=== PATIENT | female | born 1975 | race African-American/Black ===

== ENCOUNTER 2016-07-10 04:58 | Day surgery (SDC) | payer BC, OTHER ==
[2016-07-05 12:12] VITALS: BMI 25.8
[2016-07-10] MEDS ORDERED: PROPOFOL 20 ML ONE (09:07)
[2016-07-10] MEDS ORDERED: ROCURONIUM BROMIDE 50 MG/5 ML VIAL ONE (09:07)
--- NOTE | 2016-07-10 09:09 | HP ---
Past Medical History - Primary Care Physician PCP:: Glen Schofield - Admission Chief Complaint: 40 yo P4 admitted for laparoscopic BTL History of Present Illness: Multiparity. Sterilization History Source: Patient, Medical Record Limitations to Obtaining History: No Limitations - Past Medical History BOW STAPLER: No: Alzheimer's, CVA, Dementia, Migraine, Multiple Sclerosis, Peripheral Neuropathy, Parkinson's, Seizure, Syncope, TIA, Vertigo, Other Cardiovascular: No: AFIB, Aneurysm, Aortic Insufficiency, Aortic Stenosis, CAD, CHF, Deep Vein Thrombosis, HTN, Hyperlipdemia, [place], Mitral Insufficiency, Mitral Stenosis, Murmur, Pulmonary Hypertension, Other Pulmonary: No: Asthma, Bronchitis, Cancer, COPD, O2 Dependent, Pneumonia, Previously Intubated, Pulmonary Embolus, Pulmonary Fibrosis, Sleep Apnea, Other Gastrointestinal: Yes: Other (Hep B chronic carrier) Hepatobiliary: Yes: Hepatitis B Renal/: No: Renal Failure, Renal Inusuff, BPH, Cancer, Hematuria, Hemodialysis , Neurogenic Bladder, Renal Calculi, UTI, Other Reproductive: No: Ectopic , Endometriosis, Fibroids, PID, Polycystic Ovary Syndrome, Postmenopausal, Other ...Para: 4 Heme/Onc: No: Anemia, B12 Deficiency, Bleeding Disorder, Cancer, Current Chemotherapy, Current Radiation Therapy, Hemochromatosis, Hypercoaguable State, Myeloproliferative Synd, Sickle Cell Disease, Sickle Cell Trait, Thrombocytopenia, Other Infectious Disease: No: AIDS, C-Diff, Herpes Zoster, HIV, MRSA, STD's, Tuberculosis, VREF, Other Psych: No: Addictions, Anxiety, Bipolar, Depression, Panic, Psychosis, Schizophrenia, Other Musculoskeletal: No: Bursitis, Chronic low back pain, Hemiparesis, Hemiplegia, Osteoarthritis, Paraplegia, Other Rheumatology: No: Fibromyalgia, Gout, Lupus, Rheumatoid Arthritis, Sarcoidosis, Vasculitis, Other ENT: No: Allergic Rhinitis, Sinusitis, Other Endocrine: No: [place]'s Disease, [place]'s Disease, Diabetes Insipidus, Diabetes Mellitus, Hyperparathyroidism, Hyperthyroidism, Hypothyroidism, Osteopenia, SIADH, Other Dermatology: No: Basal Cell, Cellulitis, Eczema, Melanoma, Psoriasis, Squamous Cell, Other - Past Surgical History Hx Myomectomy: No Hx Transabdominal Cerclage: No Additional Surgical History: Laparoscopic removal of IUD - Smoking History Smoking history: Never smoked Have you smoked in the past 12 months: No - Alcohol/Substance Use Hx Alcohol Use: No History of Substance Use: reports: None - Social History Usual Living Arrangement: Yes: With Spouse, With Child ADL: Independent History of Recent Travel: No Home Medications - Allergies Allergies/Adverse Reactions: Allergies Allergy/AdvReac Type Severity Reaction Status Date / Time No Known Allergies Allergy Verified 04/11/16 18:51 - Home Medications Home Medications: Ambulatory Orders Pnv95/Ferrous Fumarate/FA [ Caplet] 1 tab PO DAILY 03/14/16 Review of Systems - Review of Systems Constitutional: reports: No Symptoms Eyes: reports: No Symptoms HENT: reports: No Symptoms Neck: reports: No Symptoms Cardiovascular: reports: No Symptoms Respiratory: reports: No Symptoms Gastrointestinal: reports: No Symptoms Genitourinary: reports: No Symptoms Breasts: reports: No Symptoms Reported Musculoskeletal: reports: No Symptoms Integumentary: reports: No Symptoms Neurological: reports: No Symptoms Endocrine: reports: No Symptoms Hematology/Lymphatic: reports: No Symptoms Psychiatric: reports: No Symptoms Pain Intensity: 0 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 Vital Signs: Vital Signs Temperature 97.9 F 07/10/16 07:59 Pulse Rate 69 07/10/16 07:59 Respiratory Rate 18 07/10/16 07:59 Blood Pressure 127/76 07/10/16 07:59 O2 Sat by Pulse Oximetry (%) 100 07/10/16 07:59 Constitutional: Yes: Well Nourished, No Distress, Calm Eyes: Yes: WNL, Conjunctiva Clear HENT: Yes: WNL, Atraumatic, Normocephalic Neck: Yes: WNL, Supple, Trachea Midline Cardiovascular: Yes: WNL, Regular Rate and Rhythm Respiratory: Yes: WNL, Regular, CTA Bilaterally Gastrointestinal: Yes: WNL, Normal Bowel Sounds, Soft ...Rectal Exam: Yes: WNL Renal/: Yes: WNL Pelvis: Yes: WNL External Genitalia: Yes: Normal Internal Exam Deferred: No Vaginal Exam: Yes: Normal Cervix: Yes: Normal Uterus: Yes: Normal Adnexa: Normal: Left, Right Breast(s): Yes: WNL Musculoskeletal: Yes: WNL Extremities: Yes: WNL Edema: No Integumentary: Yes: WNL Neurological: Yes: WNL, Alert, Oriented ...Motor Strength: WNL Psychiatric: Yes: WNL, Alert, Oriented Assessment/Plan 40 yo P4 admitted for laparoscopic BTL. The risks, benefits, alternatives of surgery were discussed at length. The risks of infection, bleeding, injury to underlying organs, failed sterilization, ectopic , scarring, additional surgery to treat complications, etc. explained.
[2016-07-10] MEDS ORDERED: ceFAZolin SODIUM 1 GM VIAL ONE (09:22)
[2016-07-10] MEDS ORDERED: ceFAZolin SODIUM 1 GM VIAL IVPB ONE (09:25)
[2016-07-10] MEDS ORDERED: ONDANSETRON 4 MG/2 ML VIAL ONE (09:37)
[2016-07-10] MEDS ORDERED: DEXAMETHASONE SOD PHOSPHATE 4 MG/1 ML VIAL ONE (09:37)
[2016-07-10] MEDS ORDERED: BUPIVACAINE HCL/PF 0.5% (5MG/ML) 10 ML VIAL ONE (09:56)
[2016-07-10] MEDS ORDERED: NEOSTIGMINE METHYLSULFATE 0.5 MG/ML - 10 ML MDV ONE (10:06)
[2016-07-10] MEDS ORDERED: GLYCOPYRROLATE 0.2 MG/1 ML VIAL ONE (10:06)
--- NOTE | 2016-07-10 10:10 | OP ---
Operative Note - Note: Operative Date: 07/10/16 Pre-Operative Diagnosis: Sterilization Operation: Laparoscopic BTL Findings: Normal uterus, Fallopian tubes, ovaries. Normal liver and visualized bowel Post-Operative Diagnosis: Same as Pre-op Surgeon: Glen Schofield Anesthesiologist/BAG MACHINE OPERATOR HELPER: Wilman Miller Anesthesia: General Estimated Blood Loss (mls): 3 Drains & Tubes with Location: Sant[place]aria Cath Drains, Volume Out (mls): 300 Blood Volume Replaced (mls): 0 Fluid Volume Replaced (mls): 800 Operative Report Dictated: Yes
[2016-07-10] MEDS ORDERED: oxyCODONE HCL 5 MG TABLET PO PRN (10:23)
[2016-07-10] MEDS ORDERED: ONDANSETRON 4 MG/2 ML VIAL IVPUSH PRN (10:23)
[2016-07-10] MEDS ORDERED: ACETAMINOPHEN 325 MG TABLET (FP) PO PRN (10:23)
[2016-07-10] MEDS ORDERED: LACTATED RINGERS SOLUTION 1,000 ML IV SCH (10:30)
--- NOTE | 2016-07-10 12:03 | OP ---
DATE OF OPERATION: 07/10/2016 PREOPERATIVE DIAGNOSIS: Sterilization. POSTOPERATIVE DIAGNOSIS: Sterilization. PROCEDURE: Laparoscopic bilateral tubal ligation via fulguration. SURGEON: Glen Schofield MD ANESTHESIOLOGIST: Wilman Miller DO ANESTHESIA: General. COMPLICATIONS: None. ESTIMATED BLOOD LOSS: Less than 5 mL. IV FLUIDS: 800 mL. URINE OUTPUT: 300 mL of clear urine at the end of the procedure. PATHOLOGY: None. FINDINGS: Examination under anesthesia revealed a small, anteverted uterus with no pelvic or adnexal masses. Laparoscopy revealed a normal uterus, fallopian tubes, and ovaries. Normal-appearing liver. Normal-appearing visualized portion of the bowel. DESCRIPTION OF PROCEDURE: The patient was met preoperatively. Risks, benefits, and alternatives of surgery were discussed in detail. All questions were answered. The patient was brought to the OR with the IV running. She was placed on the surgical table in a supine position. General anesthesia was achieved without difficulty. The patient was then placed in a dorsal lithotomy position using adjustable Karsten stirrups. The patient was examined under anesthesia with the findings as described above. The Sant[place]aria catheter was inserted and left the drain to gravity. The patient was prepped and draped in the usual sterile fashion. A HUMI uterine manipulation was introduced inside the uterus without complications. The surgeons then proceeded with the laparoscopy part of the operation. A 5-mm infraumbilical incision was made with a knife. A Veress needle was introduced through that incision into the peritoneal cavity. Intraperitoneal placement was confirmed by using normal saline. Once the intraperitoneal placement was confirmed, pneumoperitoneum was produced using CO2 gas. Intra-abdominal pressure was limited to 15 mmHg. The Veress needle was then removed, and a 5-mm trocar was introduced through the umbilical incision without complications. A second 5-mm trocar was introduced into the peritoneal cavity approximately 2 cm above the pubic symphysis in the midline. This was done under direct visualization and without complications. The patient's small and large bowel were moved away from the field. The left fallopian tube was identified and followed to the fimbriated end. The midportion of the left fallopian tube was then cauterized for the length of approximately 3-4 cm. The hemostasis was noted. The same was done on the right side. The right fallopian tube was followed to the fimbriated end. The midportion of the right fallopian tube was then cauterized for the length of approximately 3-4 cm. Once this was completed, survey of the abdominal cavity revealed no pathology. The pneumoperitoneum was released. All of the instruments were removed from the patient. Sponge, lap, and instrument counts were correct. Good hemostasis was confirmed. The patient was transferred to the recovery room awake and in stable condition. Rayshawn RAHMAN/[id number]
[2016-07-10 12:43] VITALS: TEMP 98.4
[2016-07-10 14:32] VITALS: BP 120/70; PULSE 54
== END 2016-07-10 14:32 | disposition home or self-care (01) ==
LOC: JASU-SURG 04:58
PROVIDERS: ATTEND Obstetrics & Gynecology
PROC: 0UL74ZZ Occlusion of Bilateral Fallopian Tubes, Percutaneous Endoscopic Approach (ICD-10-PCS; principal; 2016-07-10 09:00)
DX: Z30.2 Encounter for sterilization (principal)
CPT/HCPCS: 84703; 94760